=== PATIENT | male | born 1985 | race African-American/Black ===

== ENCOUNTER 2021-11-11 19:53 | Emergency (ER) | payer OTHER ==
[~2021-11-11] VITALS: Ht 185.4 cm; Wt 86.2 kg
[2021-11-11 20:39] VITALS: BP 134/70
--- NOTE | 2021-11-11 20:45 | NUR ---
TO ER BED3. BIBSELF C/O RIGHT EYE PAIN S/P GETTING ELOWED PLAYING BASKETBALL X 3 DAYS AGO. PT STATES "EYE IS PAINFUL AND BLURRY UPON AWAKENING IN THE AM" DENIES ANY VISION CHANGES. BRUISING NOTED AROUND EYE. ERYTHEMA NOTED ON R EYE. AWAITING MD ORDERS
[2021-11-11] MEDS ORDERED: CYCLOPENTOLATE 1% OPHTHALMIC 2 ML BOTTLE ONE (22:22)
[2021-11-11] MEDS ORDERED: FLUORESCEIN SODIUM OPHTH 1 EA STRIP ONE (22:22)
--- NOTE | 2021-11-11 22:28 | NUR ---
Patient eloped from facility. ER MD notified.
[2021-11-11] MEDS: FLUORESCEIN SODIUM OPHTH 1 EA STRIP OP ONE (22:29)
[2021-11-11] MEDS: CYCLOPENTOLATE 2% RIGHTEYE ONE (22:29)
[2021-11-11] MEDS: TETRACAINE HCL 0.5% OPHTALMIC 15 ML BOTTLE OP ONE (22:29)
[2021-11-11] MEDS ORDERED: CYCL15DR16 RIGHTEYE (23:55)
== END 2021-11-11 23:23 | disposition left against medical advice (07) ==
LOC: ER 19:57
DX: H20.9 Unspecified iridocyclitis (principal)

== ENCOUNTER 2022-06-10 09:52 | Emergency (ER) | payer OTHER ==
[~2022-06-10] VITALS: Ht 182.9 cm; Wt 81.6 kg
[~2022-06-10 09:52] MED LIST: CYCL15DR16 RIGHTEYE
[2022-06-10 10:00] VITALS: BP 121/67
--- NOTE | 2022-06-10 10:00 | NUR ---
2ND AND 3RD DIGIT PAIN/SWELLING, INJURED PLAYING BASKETBALL A WEEK AGO. PAIN 5/10 ON PAIN SCALE.
--- NOTE | 2022-06-10 10:48 | NUR ---
Patient discharged to home in stable condition. Written and verbal after care instructions given. Patient verbalizes understanding of instruction.
== END 2022-06-10 10:49 | disposition home or self-care (01) ==
LOC: ER 09:56
DX: S62.620A Displaced fracture of middle phalanx of right index finger, initial encounter for closed fracture (principal); S62.622A Displaced fracture of middle phalanx of right middle finger, initial encounter for closed fracture; Z60.2 Problems related to living alone; W23.0XXA Caught, crushed, jammed, or pinched between moving objects, initial encounter; Y93.67 Activity, basketball; Y92.89 Other specified places as the place of occurrence of the external cause; Y99.8 Other external cause status
CPT/HCPCS: 73130-TC

== ENCOUNTER 2024-07-14 19:41 | Emergency (ER) | payer OTHER ==
[~2024-07-14] VITALS: Ht 175.3 cm; Wt 74.8 kg
[2024-07-14 20:31] VITALS: BP 126/81; TEMP 98.2; O2SAT 98
[2024-07-14] MEDS ORDERED: IBUPROFEN 600 MG TABLET ONE (21:56)
[2024-07-14] MEDS: IBUPROFEN 600 MG TABLET PO ONE (21:58)
[2024-07-14] MEDS ORDERED: IBUP-1490 PO (22:40)
== END 2024-07-14 22:26 | disposition home or self-care (01) ==
LOC: ER 19:43
DX: S59.092A Other physeal fracture of lower end of ulna, left arm, initial encounter for closed fracture (principal); Z60.2 Problems related to living alone; Z79.899 Other long term (current) drug therapy; W18.39XA Other fall on same level, initial encounter; Y93.89 Activity, other specified; Y92.89 Other specified places as the place of occurrence of the external cause; Y99.8 Other external cause status
CPT/HCPCS: 73070-TC; 73090-TC; 73110